=== PATIENT | female | born 1990 | race Caucasian/White ===

== ENCOUNTER 2017-05-07 11:29 | Emergency (ER) | payer MEDICAID ==
[2017-05-07 11:36] VITALS: BP 130/80; PULSE 68; RESP 18; TEMP 97.6; O2SAT 100
--- NOTE | 2017-05-07 12:10 | C.PDOC ---
History Of Present Illness 26-year-old female, PMHx includes Anxiety, Asthma, Bipolar Disorder, Depression , Post Traumatic Stress Disorder, comes in for evaluation of left buttock painful mass, that gradually developed for a week, states her boyfriend tried to squeeze, and it worsened. Denies fever, chills, abd. pain, N/V, change in bowel movement. No other complaints at this time. Time Seen by Provider: 05/07/17 11:48 Chief Complaint (Nursing): Abnormal Skin Integrity History Per: Patient History/Exam Limitations: no limitations Onset/Duration Of Symptoms: Days Current Symptoms Are (Timing): Still Present Past Medical History Reviewed: Historical Data, Nursing Documentation, Vital Signs Vital Signs: Last Vital Signs Temp 97.6 F 05/07/17 11:32 Pulse 68 05/07/17 11:32 Resp 18 05/07/17 11:32 BP 130/80 05/07/17 11:32 Pulse Ox 100 05/07/17 12:29 - Medical History PMH: Anxiety, Asthma, Bipolar Disorder, Depression, Post Traumatic Stress Disorder Family History: States: No Known Family Hx - Social History Hx Alcohol Use: No Hx Substance Use: No - Immunization History Hx Tetanus Toxoid Vaccination: No Hx Influenza Vaccination: No Hx Pneumococcal Vaccination: No Review Of Systems Except As Marked, All Systems Reviewed And Found Negative. Constitutional: Negative for: Fever Respiratory: Negative for: Cough Gastrointestinal: Negative for: Vomiting Skin: Positive for: Other (mass to left buttock) Physical Exam - Physical Exam Appears: Non-toxic, No Acute Distress Skin: Warm, Dry, Other (2cm diameter tender mass to the left guteus. There is a small open wound in center with purulent discharge. No fluctuance or proximal streaking.) Head: Normacephalic Eye(s): bilateral: PERRL Gastrointestinal/Abdominal: Soft, No Tenderness, No Distention, No Guarding Back: No CVA Tenderness Extremity: Normal ROM, No Tenderness, No Deformity, No Swelling Neurological/Psych: Oriented x3, Normal Speech ED Course And Treatment O2 Sat by Pulse Oximetry: 100 Progress Note: On re-evAl, pt is afebrile, hemodynamicalys table. non-toxic. Ambulatory in ED with stable gait. Abd: benign. SKinL exam c/w self-draining Left gluteal abscess, no rythema, no flactulance. WOund cx sent to lab. Damage Appraiser dvised and ref. to F/u with Surgery in 2-3 days for re-eavl. return to ED if any worsening or new changes. Disposition Counseled Patient/Family Regarding: Diagnosis, Need For Followup - Disposition Referrals: Rodríguez Yo MD [Staff Provider] - Disposition: HOME/ ROUTINE Disposition Time: 12:08 Condition: GOOD Additional Instructions: WARM SALTY WATER COMPRESSES TO AREA 2-3 TIMES DAILY FOR 5 MINUTES TAKE MEDICATION PRESCRIBED FOLLOW UP WITH PMD IN 2-3 DAYS FOR RE-EVALUATION. RETURN TO ED IF ANY WORSENING OR NEW CHANGES. Prescriptions: Doxycycline Monohydrate [[place]] 100 mg PO BID #14 capsule Instructions: Abscess (ED) Forms: [employer] (Hebrew) - Clinical Impression Clinical Impression: Abscess - Scribe Statement The provider has reviewed the documentation as recorded by the Scribe (Hilda Ash) All medical record entries made by the Scribe were at my direction and personally dictated by me. I have reviewed the chart and agree that the record accurately reflects my personal performance of the history, physical exam, medical decision making, and the department course for this patient. I have also personally directed, reviewed, and agree with the discharge instructions and disposition.
== END 2017-05-07 12:29 | disposition home or self-care (01) ==
LOC: C.ER 11:29
DX: L02.31 Cutaneous abscess of buttock (principal)